=== PATIENT | male | born 1995 | race Caucasian/White ===

== ENCOUNTER 2018-08-21 06:06 | Day surgery (SDC) | payer OTHER ==
[2018-08-18 16:11] VITALS: Ht 160 cm; Wt 60.5 kg
[2018-08-21] VITALS (12 sets, daily range): BP systolic 99–124; BP diastolic 52–72; PULSE 62–72; RESP 14–21
[~2018-08-21] VITALS: Ht 160 cm; Wt 60.5 kg
[2018-08-21] MEDS ORDERED: LIDOCAINE 1%/EPI (1:100,000) (MDV) 20 ML ONE (07:02)
--- NOTE | 2018-08-21 07:13 | PREAC ---
Date/Time of Note Date/Time of Note DATE: 08/21/18 TIME: 07:12 Anesthesia Eval and Record Evaluation Time Pre-Procedure Interview DATE: 08/21/18 TIME: 07:12 Age 22 Sex male NPO: 8 hrs Preoperative diagnosis Deviated nasal septum, bilateral turbinate hypertrophy Planned procedure Septoplasty Past Medical History Past Medical History: Includes Pulm: Smoking Hx Surgery & Anesthesia Issues No known issue Meds Anticoagulation: No Beta Aneta within 24 hr: No Reason Beta Aneta not given: Pt. not on B-Aneta No Active Prescriptions or Reported Meds Meds reviewed: Yes Allergies Coded Allergies: No Known Allergy (Unverified , 08/21/18) Allergies Reviewed: Yes Labs/Studies Labs Reviewed: Reviewed by anesthesiologist test: N/A Pre-procedure Exam Last vitals Vital Signs Date Temp Pulse Resp B/P (MAP) Pulse Ox O2 O2 Flow FiO2 Time Delivery Rate 08/21/18 98.1 63 18 103/60 98 Room Air 06:49 (74) Airway: Adequate mouth opening Mallampati: Mallampati I Teeth: Normal Lung: Normal Heart: Normal ASA Physical Status ASA physical status: 1 Emergency: None Planned Anesthetic General/MAC: ETT Planned Pain Management Parenteral pain med Pre-operative Attestations Prior to commencing anesthesia and surgery, the patient was re-evaluated, there was verification of: *The patient's identity *The results of appropriate recent lab work and preoperative vital signs *The above evaluation not changing prior to induction *Anesthetic plan, risk benefits, alternative and complications discussed with patient/family; questions answered; patient/family understands, accepts and wishes to proceed. ROXI BROOKS MD Aug 21, 2018 07:13
[2018-08-21] MEDS ORDERED: OXYMETAZOLINE 0.05% 15 ML NAS SPRAY NASAL ONE (07:14)
--- NOTE | 2018-08-21 07:32 | SIPON ---
Date/Time of Note Date/Time of Note DATE: 08/21/18 TIME: 07:32 Operative Report Preoperative Diagnosis dns Postoperative Diagnosis dns Operation/Procedure Performed stm Surgeon see signature line general office assistant na Anesthesia: general Estimated blood loss: 10 - 50 ml's Transfusion Required none Specimen septal bone Grafts/Implants none Complications none WICHO OLVERA MD Aug 21, 2018 07:32
--- NOTE | 2018-08-21 07:32 | HPN ---
Date/Time of Note Date/Time of Note DATE: 08/21/18 TIME: 07:32 Interval H&P Admission Note Pt. seen H&P reviewed: No system changes WICHO OLVERA MD Aug 21, 2018 07:32
[2018-08-21] MEDS ORDERED: ROCURONIUM 50 MG INJ ONE (07:34)
[2018-08-21] MEDS ORDERED: PROPOFOL 20 ML ONE (07:34)
[2018-08-21] MEDS ORDERED: SUCCINYLCHOLINE CHLORIDE 100 MG/5 ML SYG IV ONE (07:34)
[2018-08-21] MEDS ORDERED: MEPERIDINE 100 MG INJ ONE (07:34)
[2018-08-21] MEDS ORDERED: GLYCOPYRROLATE 0.4 MG INJ ONE (07:34)
[2018-08-21] MEDS ORDERED: LIDOCAINE 2% (SDV) 5 ML INJ ONE (07:34)
[2018-08-21] MEDS ORDERED: MIDAZOLAM 1 MG/ML 2 ML INJ IV PRN (08:30)
[2018-08-21] MEDS ORDERED: EPHEDrine SULFATE 50 MG/5 ML SYG IV PRN (08:30)
[2018-08-21] MEDS ORDERED: MEPERIDINE 25 MG INJ IV PRN (08:30)
[2018-08-21] MEDS ORDERED: ONDANSETRON 4 MG INJ IV PRN (08:30)
[2018-08-21] MEDS ORDERED: DIPHENHYDRAMINE 50 MG INJ IV PRN (08:30)
[2018-08-21] MEDS ORDERED: METOCLOPRAMIDE 10 MG INJ IV PRN (08:30)
[2018-08-21] MEDS ORDERED: HYDROmorphONE 1 MG/5 ML IV SYRINGE IV PRN ×3 (08:30)
[2018-08-21] MEDS ORDERED: OXYCODONE/ACETAMINOPHEN (5/325) TAB PO PRN ×2 (08:30)
[2018-08-21] MEDS ORDERED: FENTAnyl 50 MCG/ML VIAL IV PRN ×3 (08:30)
[2018-08-21] MEDS ORDERED: ONDANSETRON 4 MG INJ ONE (09:32)
[2018-08-21] MEDS ORDERED: METOCLOPRAMIDE 10 MG INJ ONE (09:32)
--- NOTE | 2018-08-21 09:43 | PAC ---
Date/Time of Note Date/Time of Note DATE: 08/21/18 TIME: 09:43 Post-Anesthesia Notes Post-Anesthesia Note Last documented vital signs Vital Signs Date Temp Pulse Resp B/P (MAP) Pulse Ox O2 O2 Flow FiO2 Time Delivery Rate 08/21/18 98.5 09:38 08/21/18 62 15 99/55 (70) 97 Room Air 09:18 08/21/18 8.0 08:47 Activity: WNL Respiratory function: WNL Cardiovascular function: WNL Mental status: Baseline Pain reasonably controlled: Yes Hydration appropriate: Yes Nausea/Vomiting absent: Yes ROXI BROOKS MD Aug 21, 2018 09:43
--- NOTE | 2018-08-21 22:13 | OPR ---
DATE OF OPERATION: 08/21/2018 PREOPERATIVE DIAGNOSES: Deviated septum, turbinate hypertrophy. POSTOPERATIVE DIAGNOSES: Deviated septum, turbinate hypertrophy. PROCEDURE: Septoplasty, bilateral inferior turbinate modification. SURGEON: Wicho Waddell MD COMPLICATIONS: None. ANESTHESIA: General anesthesia. ESTIMATED BLOOD LOSS: Minimal. DESCRIPTION OF PROCEDURE: Informed consent was obtained. The patient was brought to operating room and placed in supine position. General anesthesia was then induced. Nose was injected with 1% lidoc bessy with 1:100,000 epinephrine and packed with Afrin soaked nasal gauze. After sufficient period of time had elapsed, the patient was prepped and draped in standard fashion. Left-sided hemitransfixio n incision was made. Bilateral mucoperichondrial flaps elevated. Osteocartilaginous junction was di sarticulated. High cuts made in the perpendicular plate of the ethmoid. Posterior bony defects were removed using a Rodolfo. At this point, portion of deviated cartilage was shaved using a 15 blade and I was able to remove a bony deflection using an osteotome. The septum swung back into the midli ne and fixated to the spine using a [id number] Vicryl suture. The cartilage had been removed, w as morselized and was then replaced. The hemitransfixion incision was then closed using multiple chr omic sutures. Whipstitch composed of plain gut was used to oppose septal flaps. Inferior turbinates were submucosally reduced, infractured and outfractured using Kahn. At this point, Telfa packs p laced bilaterally. The patient was then awakened and transferred to recovery room in stable conditio n. Dictated By: WICHO BENEDICT/CHAVA Conf#: [id number] DID#: [id number]
== END 2018-08-21 11:00 | disposition home or self-care (01) ==
LOC: SDS 06:06
PROVIDERS: ATTEND Otolaryngology
DX: J34.2 Deviated nasal septum (principal); J34.3 Hypertrophy of nasal turbinates
CPT/HCPCS: 30140; 30520; J1170; J2175; J2405; J3010; Z7512; Z7610; 88300; J2765